=== PATIENT | male | born 1965 | race Caucasian/White ===

== ENCOUNTER 2023-06-18 08:38 | Emergency (ER) | payer MEDICAID ==
[~2023-06-18] VITALS: Ht 177.8 cm; Wt 95.3 kg
[2023-06-18 08:38] VITALS: BP_SYST 135; PULSE 126; RESP 18; TEMP 97.8; O2SAT 97
[~2023-06-18 08:38] MED LIST: ATOR20TA64 PO; LEVO88TA5 PO; LISI20TA30 PO
[2023-06-18] MEDS ORDERED: DILTIAZEM HCL 60 MG TABLET PO ONE (09:00)
[2023-06-18] MEDS ORDERED: dilTIAZem HCL IVP 5 MG/ML VIAL IVP ONE (09:00)
[2023-06-18] MEDS ORDERED: LORazepam 2 MG/ML VIAL IVP ONE (09:00)
[2023-06-18] MEDS ORDERED: NACL 0.9% 1,000 ML IV ONE (09:00)
[2023-06-18 09:15] VITALS: TEMP 98.4
[2023-06-18 09:26] LABS: BASOPHILS % (AUTO) 0.4 % (0.0-2.0); EOSINOPHILS % (AUTO) 0.6 % (0.0-4.0); HEMATOCRIT 54.9 % (36-54); HEMOGLOBIN 17.9 g/dL (14.0-18.0); LYMPHOCYTES # (AUTO) 1.5 K/uL (1.0-5.5); LYMPHOCYTES % (AUTO) 21.1 % (20.5-51.5); MEAN CORPUSCULAR HEMOGLOBIN 31 pg (27-31); MEAN CORPUSCULAR HGB CONC 33 % (32-36); MEAN CORPUSCULAR VOLUME 94 fL (79.0-98.0); MONOCYTES # (AUTO) 0.7 K/uL (0.0-1.0); MONOCYTES % (AUTO) 9.4 % (1.7-9.3); NEUTROPHILS # (AUTO) 4.9 K/uL (1.8-7.7); NEUTROPHILS % (AUTO) 68.5 % (40.0-70.0); PLATELET COUNT (AUTO) 273 K/uL (130-430); RED BLOOD CELL COUNT(AUTO) 5.82 MIL/uL (4.2-6.2); RED CELL DISTRIBUTION WIDTH 13.9 % (9.0-15.0); WHITE BLOOD COUNT (AUTO) 7.2 K/uL (4.8-10.8)
[2023-06-18 09:27] LABS: ANION GAP 2 (5-15); CALCIUM 8.6 mg/dL (8.4-11.0); CARBON DIOXIDE 33 mmol/L (23-29); CHLORIDE 99 mmol/L (98-107); GFR AFRICAN AMERICAN 111 mL/min (>90); GLUCOSE 101 mg/dL (74-106); POTASSIUM 4.3 mmol/L (3.5-5.1); SODIUM SERUM 134 mmol/L (136-145); UREA NITROGEN, BLOOD 12 mg/dL (8-21)
[2023-06-18 09:37] LABS: INR 1.2 (0.80-1.20); PROTHROMBIN TIME 12.2 SECS (9.5-12.5)
[2023-06-18 09:40] LABS: ALANINE AMINOTRANSFERASE 20 U/L (12-78); ALBUMIN 3.6 g/dL (3.4-4.8); ASPARTATE AMINOTRANSFERASE 16 U/L (10-37); CREATINE KINASE, TOTAL 63 U/L (39-308); FREE T4 (FREE THYROXINE) 0.9 ng/dL (0.6-1.6); THYROID STIMULATING HORMONE 6.18 uIu/mL (0.34-4.82); TOTAL BILIRUBIN 0.7 mg/dL (0.0-1.0); TOTAL PROTEIN, SERUM 7.4 g/dL (6.4-8.3)
[2023-06-18 09:42] LABS: GFR NON AFRICAN-AMERICAN 91 mL/min (>90)
[2023-06-18] MEDS ORDERED: LORA-259 PO (10:35)
[2023-06-18 11:05] VITALS: BP_SYST 129; PULSE 81; RESP 16; O2SAT 92
== END 2023-06-18 11:05 | disposition home or self-care (01) ==
LOC: SED 08:38
DX: I48.91 Unspecified atrial fibrillation (principal); R07.9 Chest pain, unspecified; R00.2 Palpitations; I10 Essential (primary) hypertension; Z88.5 Allergy status to narcotic agent; Z79.899 Other long term (current) drug therapy
CPT/HCPCS: 99285; 96374; 71045; 96361; 96375; 80053; 82550; 83880; 84439; 84443; 85025; 85610; 85730; 84484; 36415; 93005; G0482; J3490; J2060; J7030

== ENCOUNTER 2023-12-26 08:16 | Inpatient (IN) | payer MEDICAID, OTHER ==
[~2023-12-26] VITALS: Ht 177.8 cm; Wt 95.3 kg
[~2023-12-26 08:16] MED LIST changes: +LORA-259 PO
[2023-12-26 08:27] VITALS: BP_SYST 130; PULSE 127; RESP 17; TEMP 98.2; O2SAT 97
[2023-12-26 09:12] LABS: BASOPHILS % (AUTO) 0.5 % (0.0-2.0); EOSINOPHILS % (AUTO) 0.3 % (0.0-4.0); HEMATOCRIT 49.4 % (36-54); HEMOGLOBIN 16.3 g/dL (14.0-18.0); LYMPHOCYTES # (AUTO) 1.2 K/uL (1.0-5.5); LYMPHOCYTES % (AUTO) 17.6 % (20.5-51.5); MEAN CORPUSCULAR HEMOGLOBIN 30 pg (27-31); MEAN CORPUSCULAR HGB CONC 33 % (32-36); MEAN CORPUSCULAR VOLUME 92 fL (79.0-98.0); MONOCYTES # (AUTO) 0.6 K/uL (0.0-1.0); MONOCYTES % (AUTO) 8.9 % (1.7-9.3); NEUTROPHILS # (AUTO) 5.1 K/uL (1.8-7.7); NEUTROPHILS % (AUTO) 72.7 % (40.0-70.0); PLATELET COUNT (AUTO) 231 K/uL (130-430); RED CELL DISTRIBUTION WIDTH 15.4 % (9.0-15.0)
[2023-12-26 09:22] LABS: ANION GAP 7 (5-15); CALCIUM 8.8 mg/dL (8.4-11.0); CARBON DIOXIDE 27 mmol/L (23-29); CHLORIDE 101 mmol/L (98-107); CREATININE 0.96 mg/dL (0.55-1.30); GFR AFRICAN AMERICAN 103 mL/min (>90); GLUCOSE 98 mg/dL (74-106); POTASSIUM 3.7 mmol/L (3.5-5.1); SODIUM SERUM 135 mmol/L (136-145); UREA NITROGEN, BLOOD 16 mg/dL (8-21)
[2023-12-26 09:23] LABS: GFR NON AFRICAN-AMERICAN 85 mL/min (>90)
[2023-12-26] MEDS: dilTIAZem HCL IVP 5 MG/ML VIAL IVP ONE (10:47)
[2023-12-26] MEDS: NITROGLYCERIN 1 INCH (GM) OINT. TP ONE (11:02)
[2023-12-26] MEDS: FUROSEMIDE 40 MG/4 ML VIAL IVP ONE (11:02)
[2023-12-26] MEDS ORDERED: VERA120T20 PO (11:11)
[2023-12-26] MEDS ORDERED: ROSU10TA29 PO (11:11)
[2023-12-26] MEDS ORDERED: LEVO100T9 PO (11:11)
[2023-12-26] MEDS ORDERED: RIVA15TA PO (11:11)
[2023-12-26] MEDS ORDERED: LISI1TAB57 PO (11:11)
[2023-12-26] MEDS ORDERED: TEST75GE12 TP (11:11)
[2023-12-26] MEDS ORDERED: HYDROcodone/ACETAMIN 5-325 MG TAB (NORCO/ VICODIN) PO PRN (11:45)
[2023-12-26] MEDS ORDERED: ALBUTEROL SULFATE 0.083% 2.5 MG/3 ML VIAL.NEB INH PRN (11:45)
[2023-12-26] MEDS ORDERED: LORazepam 2 MG/ML VIAL IVP PRN (11:45)
[2023-12-26] MEDS ORDERED: VERAPAMIL HCL 80 MG TABLET PO SCH (14:00)
[2023-12-26] MEDS ORDERED: ACETAMINOPHEN 325 MG TABLET PO PRN ×2 (14:15→14:45)
[2023-12-26] MEDS ORDERED: ACETAMINOPHEN 325 MG TABLET ONE (14:36)
[2023-12-26] MEDS: ACETAMINOPHEN 325 MG TABLET PO PRN (15:42)
[2023-12-26] MEDS: VERAPAMIL HCL 120 MG TABLET.SA PO ONE (16:23)
[2023-12-26] MEDS ORDERED: ONDANSETRON HCL 4 MG/2 ML VIAL IM PRN (17:15)
[2023-12-26] MEDS: METOPROLOL TARTRATE 50 MG TABLET PO ONE (18:03)
[2023-12-26] MEDS: RIVAROXABAN 15 MG TABLET PO SCH (18:03)
[2023-12-26] MEDS ORDERED: METOPROLOL TARTRATE 50 MG TABLET PO SCH (21:00)
[2023-12-26] MEDS: VERAPAMIL HCL 120 MG TABLET.SA PO SCH (22:00)
[2023-12-26] MEDS: ATORVASTATIN 20 MG TABLET PO SCH (23:33)
[2023-12-26 23:39] VITALS: BP_SYST 96; PULSE 112; RESP 18; O2SAT 95
[2023-12-27 06:31] LABS: BASOPHILS # (AUTO) 0.1 K/uL (0.0-0.2); BASOPHILS % (AUTO) 0.9 % (0.0-2.0); EOSINOPHILS # (AUTO) 0.1 K/uL (0.0-0.4); EOSINOPHILS % (AUTO) 1.5 % (0.0-4.0); LYMPHOCYTES # (AUTO) 1.6 K/uL (1.0-5.5); LYMPHOCYTES % (AUTO) 25.6 % (20.5-51.5); MEAN CORPUSCULAR HEMOGLOBIN 30 pg (27-31); MEAN CORPUSCULAR HGB CONC 33 % (32-36); MEAN CORPUSCULAR VOLUME 91 fL (79.0-98.0); MONOCYTES # (AUTO) 0.7 K/uL (0.0-1.0); MONOCYTES % (AUTO) 11.2 % (1.7-9.3); NEUTROPHILS # (AUTO) 3.7 K/uL (1.8-7.7); NEUTROPHILS % (AUTO) 60.8 % (40.0-70.0); PLATELET COUNT (AUTO) 236 K/uL (130-430); RED BLOOD CELL COUNT(AUTO) 5.59 MIL/uL (4.2-6.2); RED CELL DISTRIBUTION WIDTH 15.2 % (9.0-15.0); WHITE BLOOD COUNT (AUTO) 6.1 K/uL (4.8-10.8)
[2023-12-27 07:12] LABS: ALBUMIN 2.9 g/dL (3.4-4.8); BILIRUBIN,DIRECT 0.2 mg/dL (0.0-0.3); CALCIUM 8.3 mg/dL (8.4-11.0); CREATININE 0.85 mg/dL (0.55-1.30); TOTAL BILIRUBIN 0.7 mg/dL (0.0-1.0); TOTAL PROTEIN, SERUM 6.9 g/dL (6.4-8.3)
[2023-12-27] MEDS: LEVOTHYROXINE SODIUM 0.1 MG TABLET PO SCH (07:50)
[2023-12-27 08:00] VITALS: BP_SYST 106; PULSE 95; RESP 20; TEMP 97.7; O2SAT 95
[2023-12-27 08:45] VITALS: O2SAT 95
[2023-12-27] MEDS: FUROSEMIDE 40 MG/4 ML VIAL IVP SCH (09:00)
[2023-12-27] MEDS: METOPROLOL TARTRATE 50 MG TABLET PO SCH (09:00)
[2023-12-27 12:00] VITALS: BP_SYST 104; PULSE 92; RESP 20; TEMP 97.8; O2SAT 95
[2023-12-27] MEDS ORDERED: BUDESONIDE/FORMOTEROL 160-4.5 mCg, 6 GM INHALER INH SCH (15:00)
[2023-12-27 16:00] VITALS: BP_SYST 118; PULSE 99; RESP 20; TEMP 97.6; O2SAT 95
[2023-12-27] MEDS: FUROSEMIDE 20 MG/2 ML VIAL IVP SCH (17:48)
[2023-12-27] MEDS: ALBUTEROL SULFATE 0.083% 2.5 MG/3 ML VIAL.NEB INH SCH (19:00)
[2023-12-27] MEDS: BUDESONIDE 0.5 MG/2 ML AMPUL.NEB INH SCH (19:00)
[2023-12-27 19:36] LABS: BILIRUBIN,URINE 1+ (NEGATIVE); BLOOD, URINE NEGATIVE (NEGATIVE); CLARITY/URINE CLEAR (CLEAR); COLOR,URINE YELLOW (YELLOW); GLUCOSE,URINE NEGATIVE (NEGATIVE); KETONES,URINE NEGATIVE (NEGATIVE); LEUKOCYTE ESTERASE ,URINE NEGATIVE (NEGATIVE); NITRITE, URINE NEGATIVE (NEGATIVE); PH,URINE 6.5 (5.0-8.0); PROTEIN URINE 1+ (NEGATIVE)
[2023-12-27 19:57] LABS: BARBITURATE, URINE NEGATIVE (NEG <=200); BENZODIAZEPINE, URINE NEGATIVE (NEG <=150); CANNABINOID, URINE NEGATIVE (NEG <=50); COCAINE, URINE NEGATIVE (NEG <=150); METHAMPHETAMINES SCREEN,URINE NEGATIVE (NEG <=500); OPIATE, URINE NEGATIVE (NEG <=100); PHENCYCLIDINE SCREEN,URINE NEGATIVE (NEG <=25); UR TRICYCLIC ANTIDEPRESSANTS NEGATIVE (NEG <=300); URINE AMPHETAMINE NEGATIVE (NEG <=500); URINE METHADONE NEGATIVE (NEG <=200); URINE OXYCODONE SCREEN NEGATIVE (NEG <=100)
[2023-12-27 20:00] VITALS: BP_SYST 118; PULSE 89; RESP 18; TEMP 98.2; O2SAT 96
[2023-12-27 20:12] LABS: BACTERIA,URINE FEW /HPF (None Seen); RBC,URINE 0-3 /HPF (0-3); WBC,URINE 0-3 /HPF (0-3)
[2023-12-27 23:30] VITALS: O2SAT 97
[2023-12-28 00:14] VITALS: BP_SYST 110
[2023-12-28 01:30] VITALS: O2SAT 97
[2023-12-28] MEDS: ZOLPIDEM TARTRATE 5 MG TABLET PO PRN (01:37)
[2023-12-28 06:15] LABS: BASOPHILS % (AUTO) 0.5 % (0.0-2.0); EOSINOPHILS % (AUTO) 0.4 % (0.0-4.0); HEMATOCRIT 51.8 % (36-54); HEMOGLOBIN 17.2 g/dL (14.0-18.0); LYMPHOCYTES # (AUTO) 1.3 K/uL (1.0-5.5); LYMPHOCYTES % (AUTO) 15.3 % (20.5-51.5); MEAN CORPUSCULAR HEMOGLOBIN 30 pg (27-31); MEAN CORPUSCULAR HGB CONC 33 % (32-36); MEAN CORPUSCULAR VOLUME 91 fL (79.0-98.0); MONOCYTES # (AUTO) 0.8 K/uL (0.0-1.0); MONOCYTES % (AUTO) 9.8 % (1.7-9.3); NEUTROPHILS # (AUTO) 6.4 K/uL (1.8-7.7); PLATELET COUNT (AUTO) 242 K/uL (130-430); RED CELL DISTRIBUTION WIDTH 15.3 % (9.0-15.0); WHITE BLOOD COUNT (AUTO) 8.7 K/uL (4.8-10.8)
[2023-12-28 06:48] LABS: CALCIUM 8.8 mg/dL (8.4-11.0); CREATININE 0.93 mg/dL (0.55-1.30); POTASSIUM 3.8 mmol/L (3.5-5.1)
[2023-12-28 08:04] VITALS: O2SAT 99
[2023-12-28 08:10] VITALS: BP_SYST 115; PULSE 120; RESP 18; TEMP 96.4; O2SAT 100; O2SAT 99
[2023-12-28] MEDS: AMIODARONE HCL 200 MG TABLET PO ONE (12:00)
[2023-12-28 16:00] VITALS: BP_SYST 109; PULSE 118; RESP 18; TEMP 96.8; O2SAT 100
[2023-12-28 20:00] VITALS: BP_SYST 101; PULSE 84; RESP 16; TEMP 97.9
[2023-12-29 00:04] VITALS: BP_SYST 98; PULSE 101; RESP 16
[2023-12-29 08:00] VITALS: BP_SYST 122; PULSE 108; RESP 16; TEMP 98.7; O2SAT 100; O2SAT 98
[2023-12-29] MEDS: AMIODARONE HCL 200 MG TABLET PO SCH (09:53)
[2023-12-29] MEDS ORDERED: FURO-150 PO (10:55)
[2023-12-29] MEDS ORDERED: AMIO100T4 PO (10:56)
[2023-12-29] MEDS ORDERED: METO-442 PO (10:56)
[2023-12-29 12:55] VITALS: BP_SYST 107; PULSE 106; RESP 18; TEMP 98.5; O2SAT 100
== END 2023-12-29 14:10 | disposition home or self-care (01) | DRG 291 ==
LOC: SED 08:16 → STU 11:39
PROVIDERS: ADMIT Internal Medicine; ATTEND Internal Medicine
DX: I11.0 Hypertensive heart disease with heart failure (principal); I50.23 Acute on chronic systolic (congestive) heart failure; J96.00 Acute respiratory failure, unspecified whether with hypoxia or hypercapnia; J44.1 Chronic obstructive pulmonary disease with (acute) exacerbation; I48.20 Chronic atrial fibrillation, unspecified; F12.10 Cannabis abuse, uncomplicated; F10.10 Alcohol abuse, uncomplicated; Y90.9 Presence of alcohol in blood, level not specified; E03.9 Hypothyroidism, unspecified; Z88.5 Allergy status to narcotic agent; Z79.899 Other long term (current) drug therapy
CPT/HCPCS: 36415; 71045; 80048; 80076; 80307; 81000; 81001; 81015; 83880; 84443; 84484; 85025; 93005; 93306; 94640; 94760; 96374; 96375; 99291; G0378; J1940; J3490; J7626

== ENCOUNTER 2024-01-21 09:33 | Inpatient (IN) | payer OTHER ==
[~2024-01-21] VITALS: Ht 177.8 cm; Wt 92.1 kg
[2024-01-21 09:33] VITALS: BP_SYST 153; PULSE 105; RESP 18; TEMP 97.2; O2SAT 93
[~2024-01-21 09:33] MED LIST changes: +AMIO100T4 PO; +FURO-150 PO; +LEVO100T9 PO; +LISI1TAB57 PO; -LISI20TA30 PO; +METO-442 PO; +RIVA15TA PO
[2024-01-21 10:11] LABS: BASOPHILS # (AUTO) 0.1 K/uL (0.0-0.2); BASOPHILS % (AUTO) 0.8 % (0.0-2.0); EOSINOPHILS # (AUTO) 0.1 K/uL (0.0-0.4); EOSINOPHILS % (AUTO) 1.6 % (0.0-4.0); LYMPHOCYTES # (AUTO) 2.4 K/uL (1.0-5.5); LYMPHOCYTES % (AUTO) 29.4 % (20.5-51.5); MEAN CORPUSCULAR HEMOGLOBIN 31 pg (27-31); MEAN CORPUSCULAR HGB CONC 33 % (32-36); MEAN CORPUSCULAR VOLUME 91 fL (79.0-98.0); MONOCYTES # (AUTO) 0.7 K/uL (0.0-1.0); MONOCYTES % (AUTO) 8.7 % (1.7-9.3); NEUTROPHILS # (AUTO) 4.8 K/uL (1.8-7.7); NEUTROPHILS % (AUTO) 59.5 % (40.0-70.0); PLATELET COUNT (AUTO) 234 K/uL (130-430); RED BLOOD CELL COUNT(AUTO) 5.91 MIL/uL (4.2-6.2); RED CELL DISTRIBUTION WIDTH 15.4 % (9.0-15.0)
[2024-01-21 10:28] LABS: ANION GAP 7 (5-15); CALCIUM 8.7 mg/dL (8.4-11.0); CARBON DIOXIDE 30 mmol/L (23-29); CHLORIDE 99 mmol/L (98-107); CREATININE 1.31 mg/dL (0.55-1.30); GFR AFRICAN AMERICAN 72 mL/min (>90); GLUCOSE 147 mg/dL (74-106); POTASSIUM 4.2 mmol/L (3.5-5.1); SODIUM SERUM 136 mmol/L (136-145); UREA NITROGEN, BLOOD 20 mg/dL (8-21)
[2024-01-21 10:30] LABS: GFR NON AFRICAN-AMERICAN 59 mL/min (>90)
[2024-01-21 10:34] LABS: ALANINE AMINOTRANSFERASE 60 U/L (12-78); ALBUMIN 3.4 g/dL (3.4-4.8); ASPARTATE AMINOTRANSFERASE 37 U/L (10-37); BILIRUBIN,DIRECT 0.3 mg/dL (0.0-0.3); TOTAL BILIRUBIN 1.1 mg/dL (0.0-1.0); TOTAL PROTEIN, SERUM 7.8 g/dL (6.4-8.3)
[2024-01-21] MEDS ORDERED: FURO20TA4 PO (11:23)
[2024-01-21] MEDS ORDERED: TEST75GE12 TP (11:23)
[2024-01-21] MEDS ORDERED: ONDANSETRON HCL 4 MG/2 ML VIAL IVP PRN (13:00)
[2024-01-21] MEDS ORDERED: ACETAMINOPHEN 325 MG TABLET PO PRN ×2 (13:00)
[2024-01-21] MEDS: NORMAL SALINE 5 ML DISP.SYRIN IVF SCH (13:56)
[2024-01-21 17:50] VITALS: BP_SYST 118; PULSE 98; RESP 18; TEMP 98; O2SAT 0
[2024-01-21 20:30] VITALS: BP_SYST 145; PULSE 79; RESP 20; TEMP 98.5; O2SAT 95
[2024-01-21] MEDS: METOPROLOL TARTRATE 50 MG TABLET PO SCH (20:58)
[2024-01-21] MEDS: AMIODARONE HCL 200 MG TABLET PO ONE (20:59)
[2024-01-21] MEDS: ATORVASTATIN 20 MG TABLET PO SCH (20:59)
[2024-01-21] MEDS ORDERED: LORazepam 1 MG TABLET PO SCH (21:00)
[2024-01-21 22:00] VITALS: O2SAT 95
[2024-01-22 01:00] VITALS: BP_SYST 137; PULSE 82; RESP 20; TEMP 97.6; O2SAT 97
[2024-01-22] MEDS: LEVOTHYROXINE SODIUM 0.1 MG TABLET PO SCH (06:13)
[2024-01-22 07:33] LABS: BASOPHILS % (AUTO) 0.7 % (0.0-2.0); EOSINOPHILS # (AUTO) 0.1 K/uL (0.0-0.4); EOSINOPHILS % (AUTO) 1.8 % (0.0-4.0); HEMATOCRIT 50.9 % (36-54); HEMOGLOBIN 17.1 g/dL (14.0-18.0); LYMPHOCYTES % (AUTO) 28.7 % (20.5-51.5); MEAN CORPUSCULAR HEMOGLOBIN 30 pg (27-31); MEAN CORPUSCULAR HGB CONC 34 % (32-36); MEAN CORPUSCULAR VOLUME 90 fL (79.0-98.0); MONOCYTES # (AUTO) 0.6 K/uL (0.0-1.0); MONOCYTES % (AUTO) 8.4 % (1.7-9.3); NEUTROPHILS # (AUTO) 4.1 K/uL (1.8-7.7); NEUTROPHILS % (AUTO) 60.4 % (40.0-70.0); PLATELET COUNT (AUTO) 212 K/uL (130-430); RED BLOOD CELL COUNT(AUTO) 5.63 MIL/uL (4.2-6.2); RED CELL DISTRIBUTION WIDTH 15.5 % (9.0-15.0); WHITE BLOOD COUNT (AUTO) 6.8 K/uL (4.8-10.8)
[2024-01-22 07:52] LABS: ALBUMIN 2.9 g/dL (3.4-4.8); CALCIUM 8.7 mg/dL (8.4-11.0); PHOSPHORUS 3.7 mg/dL (2.7-4.5); TOTAL BILIRUBIN 0.8 mg/dL (0.0-1.0); TOTAL PROTEIN, SERUM 6.8 g/dL (6.4-8.3)
[2024-01-22 08:00] VITALS: BP_SYST 117; PULSE 94; RESP 16; TEMP 97.2; O2SAT 97
[2024-01-22] MEDS: AMIODARONE HCL 200 MG TABLET PO SCH (08:25)
[2024-01-22] MEDS: RIVAROXABAN 15 MG TABLET PO SCH (08:25)
[2024-01-22] MEDS: FUROSEMIDE 20 MG TABLET PO SCH (08:26)
[2024-01-22] MEDS: TESTOSTERONE TP SCH (08:27)
[2024-01-22] MEDS: LISINOPRIL HCTZ PO SCH (08:27)
[2024-01-22] MEDS ORDERED: TESTOSTERONE TP SCH (09:00)
[2024-01-22] MEDS ORDERED: AMIODARONE HCL 200 MG TABLET PO SCH (09:00)
[2024-01-22] MEDS: DIGOXIN 0.5 MG/2 ML AMP IVP ONE ×3 (11:29→22:46)
[2024-01-22 11:53] VITALS: O2SAT 97
[2024-01-22 12:14] VITALS: BP_SYST 105; PULSE 74; RESP 18; TEMP 97; O2SAT 96
[2024-01-22] MEDS: METOPROLOL TARTRATE 50 MG TABLET PO SCH (13:56)
[2024-01-22] MEDS: NICOTINE 21 MG/24 HR PATCH.TD24 TD ONE (14:51)
[2024-01-22] MEDS ORDERED: AMIO100T4 PO (15:45)
[2024-01-22] MEDS ORDERED: FURO40TA5 PO (15:45)
[2024-01-22] MEDS ORDERED: METO-442 PO (15:45)
[2024-01-22 16:30] VITALS: BP_SYST 116; PULSE 76; RESP 17; TEMP 97.5; O2SAT 95
[2024-01-22] MEDS: RIVAROXABAN 10 MG TABLET PO SCH (18:38)
[2024-01-22] MEDS: FUROSEMIDE 20 MG/2 ML VIAL IVP SCH (18:40)
[2024-01-22] MEDS ORDERED: traZODone HCL 50 MG TABLET (DESYREL) PO PRN (19:15)
[2024-01-22 20:00] VITALS: BP_SYST 115; PULSE 74; RESP 20; TEMP 97.7; O2SAT 95; O2SAT 98
[2024-01-23] VITALS: PULSE 76; RESP 20
[2024-01-23 04:16] LABS: BASOPHILS # (AUTO) 0.1 K/uL (0.0-0.2); BASOPHILS % (AUTO) 0.7 % (0.0-2.0); EOSINOPHILS # (AUTO) 0.2 K/uL (0.0-0.4); EOSINOPHILS % (AUTO) 3.1 % (0.0-4.0); HEMATOCRIT 48.5 % (36-54); HEMOGLOBIN 16.3 g/dL (14.0-18.0); MEAN CORPUSCULAR HEMOGLOBIN 31 pg (27-31); MEAN CORPUSCULAR HGB CONC 34 % (32-36); MEAN CORPUSCULAR VOLUME 91 fL (79.0-98.0); MONOCYTES # (AUTO) 0.7 K/uL (0.0-1.0); MONOCYTES % (AUTO) 9.5 % (1.7-9.3); NEUTROPHILS % (AUTO) 57.7 % (40.0-70.0); PLATELET COUNT (AUTO) 201 K/uL (130-430); RED BLOOD CELL COUNT(AUTO) 5.36 MIL/uL (4.2-6.2); RED CELL DISTRIBUTION WIDTH 15.3 % (9.0-15.0)
[2024-01-23 04:46] LABS: CREATININE 1.05 mg/dL (0.55-1.30); FREE T4 (FREE THYROXINE) 0.9 ng/dL (0.6-1.6); POTASSIUM 3.8 mmol/L (3.5-5.1); THYROID STIMULATING HORMONE 17.32 uIu/mL (0.34-4.82)
[2024-01-23 06:00] VITALS: BP_SYST 128; PULSE 73; RESP 20; TEMP 97.9; O2SAT 97
[2024-01-23 08:00] VITALS: BP_SYST 117; PULSE 63; RESP 16; TEMP 98.1; O2SAT 97
[2024-01-23] MEDS: DIGOXIN 0.5 MG/2 ML AMP IVP SCH (09:45)
[2024-01-23] MEDS: NICOTINE 21 MG/24 HR PATCH.TD24 TD SCH (09:55)
[2024-01-23 12:00] VITALS: BP_SYST 127; PULSE 67; RESP 16; TEMP 97.5; O2SAT 98
[2024-01-23 16:00] VITALS: BP_SYST 143; PULSE 65; RESP 16; TEMP 97.9; O2SAT 98
[2024-01-23] MEDS ORDERED: RIVA15TA PO (16:44)
[2024-01-23] MEDS ORDERED: METO-542 PO (16:44)
[2024-01-23] MEDS ORDERED: POTA-197 PO (16:44)
[2024-01-23] MEDS ORDERED: SACU1TAB PO (16:44)
[2024-01-23] MEDS ORDERED: DIGO250T PO (16:44)
[2024-01-23] MEDS ORDERED: LIP20 PO (16:44)
[2024-01-23 16:56] VITALS: BP_SYST 143; PULSE 65; RESP 16; TEMP 97.9; O2SAT 98
[2024-01-23] MEDS ORDERED: SACUBITRIL/VALSARTAN 24 MG-26 MG 1 TABLET PO SCH (21:00)
[2024-01-24] MEDS ORDERED: POTASSIUM CHLORIDE 20 MEQ/PKT PACKET PO SCH (09:00)
[2024-01-24] MEDS ORDERED: METOPROLOL SUCCINATE 50 MG TAB.SR.24H (TOPROL XL) PO SCH (09:00)
[2024-01-24] MEDS ORDERED: DIGOXIN 0.25 MG TABLET PO SCH (09:00)
[2024-01-24] MEDS ORDERED: FUROSEMIDE 40 MG TABLET PO SCH (09:00)
== END 2024-01-23 17:23 | disposition home or self-care (01) | DRG 291 ==
LOC: SED 09:33 → STU 10:54
PROVIDERS: ADMIT Preventive Medicine Preventive Medicine/Occupational Environmental Medicine; ATTEND Preventive Medicine Preventive Medicine/Occupational Environmental Medicine
DX: I11.0 Hypertensive heart disease with heart failure (principal); I50.23 Acute on chronic systolic (congestive) heart failure; N17.9 Acute kidney failure, unspecified; I48.91 Unspecified atrial fibrillation; E88.09 Other disorders of plasma-protein metabolism, not elsewhere classified; I25.10 Atherosclerotic heart disease of native coronary artery without angina pectoris; E03.9 Hypothyroidism, unspecified; F17.210 Nicotine dependence, cigarettes, uncomplicated; R73.9 Hyperglycemia, unspecified; I42.9 Cardiomyopathy, unspecified; Z88.5 Allergy status to narcotic agent; Z71.6 Tobacco abuse counseling
CPT/HCPCS: 36415; 80048; 80053; 80076; 80162; 83735; 83880; 84100; 84439; 84443; 84484; 85025; 93005; 99285; G0378; J1160; J1940